=== PATIENT | male | born 1985 | race Caucasian/White ===

== ENCOUNTER 2016-12-26 13:54 | Inpatient (IN) ==
[2016-12-26] MEDS ORDERED: CLINDAMYCIN 900 MG/NS 900 MG/50 ML IVPB IV ONE (15:49)
[2016-12-26] MEDS ORDERED: VANCOMYCIN 1 GM/NS 1 GM/250 ML IVPB IV ONE ×2 (15:49→22:00)
[2016-12-26 16:53] LABS: MANUAL DIFF NEEDED? NO
[2016-12-26 16:57] LABS: BASO% 0.1 % (0.0-0.8); EOS# 0.03 X1000 (0.0-0.7); EOS% 0.2 % (0.0-10.0); HEMATOCRIT 36.8 % (42.0-52.0); IMM GRAN# 0.07 X1000 (0.0-0.04); IMM GRAN% 0.5 % (0.0-0.5); LYMPH# 0.68 X1000 (1.2-3.4); MCH 30.1 PG (27-31); MCHC 35.3 g/dL (33-37); MCV 85.2 FL (81-99); MONO% 4.5 % (1.7-9.3); NEUT% 89.7 % (42.2-75.2); PLT 293 X1000 (130-400); RBC 4.32 XMIL (4.7-6.1)
[2016-12-26 17:12] LABS: AGAP 20; ALBUMIN 3.4 g/dL (3.5-5.0); ALKALINE PHOSPHATASE 132 U/L (32-122); BUN 12 mg/dL (8-22); CALCIUM 8.3 mg/dL (8.8-10.2); CHLORIDE 86 mmol/L (98-107); COSMO 291; GOT 16 U/L (10-34); GPT 18 U/L (10-44); POTASSIUM 4.1 mmol/L (3.5-5.1); SODIUM 128 mmol/L (136-145); TCO2 22 mmol/L (25-35); TOTAL PROTEIN 6.2 g/dL (6.3-8.3)
[2016-12-26] MEDS ORDERED: NS 1,000 ML IV ONE (17:15)
[2016-12-26] MEDS ORDERED: HUMULIN R IV ONE (17:15)
[2016-12-26] MEDS ORDERED: TYLENOL PO PRN (17:22)
[2016-12-26] MEDS ORDERED: ZOFRAN IV PRN (17:22)
[2016-12-26] MEDS ORDERED: MORPHINE IV PRN (17:22)
[2016-12-26] MEDS ORDERED: HUMULIN R (PARKWAY) ONE (17:31)
--- NOTE | 2016-12-26 17:50 | PROVIDER DOCUMENTATION ---
This chart was entered by Promise Barillas Scribe, acting as scribe for Fabio Alas CRNP. HPI-Rash/Wound/ReCheck - General Chief Complaint: Abscess Stated Complaint: ABSCESS /LEG Time Seen by Provider: 12/26/16 15:28 Source: patient Allergies/Adverse Reactions: Allergies Allergy/AdvReac Type Severity Reaction Status Date / Time Penicillins Allergy RASH Verified 12/26/16 14:07 Home Medications: Home Medication List Medication Instructions Recorded Confirmed Last Taken Type Aspirin [Aspir-Low] 81 mg PO DAILY 12/26/16 12/26/16 12/26/16 10:00 History 81 MG Canagliflozin [Invokana] 300 mg PO DAILY 12/26/16 12/26/16 12/26/16 10:00 History 300 MG Fenofibrate 150 mg PO DAILY 12/26/16 12/26/16 12/25/16 21:00 History 150 MG Glimepiride [Amaryl] 4 mg PO DAILY 12/26/16 12/26/16 12/26/16 10:00 History 4 MG Insulin Glargine,Hum.rec.anlog 20 unit SQ BID 12/26/16 12/26/16 12/26/16 10:00 History [Lantus Solostar] 20 UNIT LISINOpril [Prinivil] 10 mg PO DAILY 12/26/16 12/26/16 12/26/16 10:00 History 10 MG LOVAstatin [Mevacor] 12/26/16 12/25/16 21:00 History Metformin [Glucophage] 500 mg PO BID CC 12/26/16 12/26/16 12/26/16 10:00 History 500 MG - History of Present Illness-Dermatology Nature of Presenting Problem: 31 yo M presents to the ER with complaint of what started as an abscess x2 weeks ago to R inner thigh. Complains of some fever/chills. States he started to feel an abscess and it has gotten worse. Now is it open and draining, tunneling noted, and has an odor. Has an area of cellulitis to L upper thigh and R groin area. Location: reports: lower extremity Onset/Duration: reports: other (2 wees) Context/Associated Symptoms: reports: abscess Review of Systems - Adult - REVIEW OF SYSTEMS - ADULT Constitutional: reports: chills, fever Eyes: reports: no symptoms reported Ears, Nose, Mouth & Throat: reports: no symptoms reported Cardiovascular: denies: chest pain, palpitations Respiratory: reports: cough. denies: shortness of breath Gastrointestinal: denies: diarrhea, nausea, vomiting Genitourinary: reports: no symptoms reported Musculoskeletal: reports: no symptoms reported Integumentary: reports: see HPI, skin sores/ulcer. denies: itching Neurological: reports: no symptoms reported Psychiatric: reports: no symptoms reported Endocrine: reports: no symptoms reported Hematologic/Lymphatic: reports: no symptoms reported Allergic/Immunologic: reports: no symptoms reported All Other Systems: Reviewed and Negative Past History - Adult - PAST MEDICAL HISTORY-ADULT Review of Records: reports: Nursing Assessment Review, Medications Reviewed Cardiovascular: reports: HTN, hyperlipidemia Endocrine/Immune: reports: Diabetes - PRIOR SURGERIES/PROCEDURES Surgical/Procedure History: reports: orthopedic (extremity) (club foot), other ( pilondiaal cyst) - IMMUNIZATION STATUS Childhood Immunizations: See Nurse Assessment Flu Vaccine: See Nurse Assessment Physical Exam-General - PHYSICAL EXAM-ADULT Initial Vital Signs Reviewed: Yes - CONSTITUTIONAL General Appearance: obese - EYES Eyes: PERRL/EOMI, pink conjunctivae - HEAD, EARS, NOSE, MOUTH & THROAT HENMT: normocephalic/atraumatic, normal ENT inspection - NECK Neck: supple, normal inspection - RESPIRATORY Respiratory: no respiratory distress, no accessory muscle use - CARDIOVASCULAR Cardiovascular: normal peripheral pulses, regular rate, rhythm - GASTROINTESTINAL (ABDOMEN) Abdominal Exam: normal bowel sounds, non tender, soft - MUSCULOSKELETAL Back Exam: no CVA tenderness, no vertebral tenderness Extremity: normal gait, normal inspection - SKIN Integumentary: erythema (L groin, L upper/inner thigh), tenderness (R upper/ inner thigh), warm (R upper/inner thigh), other (dime size open, draining, ulcerative crater with significant induration and erythema to R back/inner thigh ) - NEUROLOGIC Neurologic: grossly normal, no motor/sensory deficits - PSYCHIATRIC Psych/Mental Status: normal mood/affect, normal thought content, normal thought process, oriented x 3 Progress - PLAN OF CARE/RESULTS Progress/Plan/Lab Results: Vital Signs - 8 hr 12/26/16 14:04 Temperature 96.9 F L Pulse Rate 128 H Respiratory Rate 18 Blood Pressure 142/86 O2 Sat by Pulse Oximetry 98 Laboratory Results - last 24 hr 06/14/17 06/14/17 06/14/17 15:30 15:30 15:39 WBC 13.47 H RBC 4.32 L Hgb 13.0 L Hct 36.8 L MCV 85.2 MCH 30.1 MCHC 35.3 RDW Std Deviation 11.7 Plt Count 293 MPV 10.0 Immature Gran % (Auto) 0.5 Neut % (Auto) 89.7 H Lymph % (Auto) 5.0 L Cole % (Auto) 4.5 Eos % (Auto) 0.2 Baso % (Auto) 0.1 Immature Gran # (Auto) 0.07 H Neut # (Auto) 12.07 H Lymph # (Auto) 0.68 L Cole # (Auto) 0.60 H Eos # (Auto) 0.03 Baso # (Auto) 0.02 Sodium 128 L Potassium 4.1 Chloride 86 L Carbon Dioxide 22 L Anion Gap 20 BUN 12 Creatinine 1.0 Estimated GFR/1.73 m2 > 60 BUN/Creatinine Ratio 12 Glucose 707 H* Calculated Osmolality 291 Calcium 8.3 L Total Bilirubin 0.50 AST 16 ALT 18 Alkaline Phosphatase 132 H Total Protein 6.2 L Albumin 3.4 L Globulin 3.0 Albumin/Globulin Ratio 1.0 Plasma Lactate 4.5 H Orders Category Date Time Status Admit - [facility] Routine AdmDCTranf 12/26/16 17:22 Ordered Activity - Bed Rest with BRP ORDERED Care 12/26/16 17:22 Active Resuscitation Status Routine Care 12/26/16 17:22 Ordered Vital Signs Order ROUTINE Care 12/26/16 17:22 Active Diabetic Diet Diet 12/26/16 17:24 Active BLOOD CULTURE [BLDCUL] Stat Lab 12/26/16 15:30 Ordered C DIFF TOXIN PL Stat Lab 12/26/16 16:40 Ordered CBC WITH ELECTRONIC DIFF [HEME] Stat Lab 12/26/16 15:30 Completed COMPREHENSIVE METABOLIC PANEL [CHEM] Stat Lab 12/26/16 15:30 Completed LACTATE, PLASMA [CHEM] Stat Lab 12/26/16 15:39 Completed ROUTINE CULTURE [RM] Routine Lab 12/26/16 15:35 Ordered STOOL CULTURE [RM] Stat Lab 12/26/16 16:40 Uncollected WBC STOOL [STOOL] Stat Lab 12/26/16 16:40 Uncollected 0.9% Sodium Chloride Inj [Ns] 1,000 ml Med 12/26/16 17:15 Active IV 999 mls/hr Acetaminophen [Tylenol] Med 12/26/16 17:22 Active 650 mg PO Q6H PRN PRN Clindamycin 900 mg/Ns Med 12/26/16 15:49 Discontinued 900 mg in 50 ml IV NOW Insulin Human Regular ([place] [Humulin R ([place])] Med 12/26/16 17:31 Discontinued 1 units .ROUTE .STK-MED ONE Insulin Human Regular [Humulin R] Med 12/26/16 17:15 Discontinued 15 unit IV NOW ONE Morphine Med 12/26/16 17:22 Active 2 mg IV Q2H PRN PRN Ondansetron [Zofran] Med 12/26/16 17:22 Active 4 mg IV Q4H PRN PRN Vancomycin 1 gm/Ns Med 12/26/16 15:49 Discontinued 1 gm in 250 ml IV NOW Transfer/Admit Order [TRANSFER] Routine Transfer 12/26/16 17:25 Ordered Result Diagrams: 12/26/16 15:30 12/26/16 15:30 - CONSULTS/PCP/HOSPITALIST Notification #1 *Consult/PCP/Hospitalist*: [place] Time Discussed: 17:20 Consult Disposition: Will see in ED, Admit Departure - Departure Date of Disposition Decision: 12/26/16 Time of Disposition Decision: 17:47 DIAGNOSIS: Cellulitis Qualifiers: Site of cellulitis: extremity Site of cellulitis of extremity: lower extremity Laterality: right Qualified Code(s): L03.115 - Cellulitis of right lower limb Disposition: HOME 01 Certified Medical Emergency: Emergent Condition: Stable Referrals and Follow-Ups: Brent Mann MD [Primary Care Provider] - - Critical Care Note This patient required my direct & personal management of CC.: No Attestation - Physician/ TOYIN Attestation Patient care was provided by Advanced Practice Provider:: Yes Advanced Practice Provider:: Fabio Alas Advanced Practice Provider documentation review:: The Mid-level provider documentation, treatment plan and medical decision making was reviewed by the physician who agrees with all treatment and medical decision making by the MLP. The physician spent face to face time with patient:: Yes Advanced Practice Provider documentation review:: The physician spent face to face time with this patient and agrees with all MLP documentation, treatment, and medical decision making by the MLP. See provider notes for further information. This chart was documented by the indicated scribe, (Promise Barillas Scribe) and accurately reflects the services I performed and decisions made by , Fabio Alas CRNP, as attested by the provider's signature.
[2016-12-26] MEDS ORDERED: TYLENOL PO ONE (19:10)
[2016-12-26] MEDS ORDERED: ZOFRAN IV ONE (19:11)
[2016-12-26] MEDS ORDERED: VANCOMYCIN IV PER PHARMACY MISC SCH (19:45)
[2016-12-26] MEDS: LASIX IV SCH (22:00)
[2016-12-26] MEDS: ROCEPHIN 1 GM/NS 1 GM/50 ML IVPB IV SCH (22:01)
[2016-12-26] MEDS: HUMALOG DOSE (PARKWAY) SUBQ SCH (22:07)
[2016-12-26] MEDS: LANTUS INSULIN (PARKWAY) SUBQ SCH (22:07)
[2016-12-27 05:50] LABS: HEMOGLOBIN 11.9 g/dL (14.0-18.0); MCH 29.5 PG (27-31); MCV 84.4 FL (81-99); MPV 9.6 FL (7.4-10.4); RBC 4.03 XMIL (4.7-6.1)
[2016-12-27 06:00] LABS: HEMOGLOBIN A1C 12.3 % (4.8-6.0)
[2016-12-27] MEDS: HUMALOG DOSE (PARKWAY) SUBQ SCH ×4 (06:21→21:10)
[2016-12-27 06:22] LABS: AGAP 15; ALBUMIN 2.5 g/dL (3.5-5.0); ALKALINE PHOSPHATASE 131 U/L (32-122); BUN 16 mg/dL (8-22); CALCIUM 8.4 mg/dL (8.8-10.2); CHLORIDE 94 mmol/L (98-107); COSMO 282; GOT 18 U/L (10-34); GPT 16 U/L (10-44); MAGNESIUM 1.9 mg/dL (1.5-2.7); SODIUM 132 mmol/L (136-145); TCO2 23 mmol/L (25-35); TOTAL PROTEIN 6.5 g/dL (6.3-8.3)
[2016-12-27] MEDS: TYLENOL PO PRN ×2 (08:27→22:56)
[2016-12-27] MEDS: LANTUS INSULIN (PARKWAY) SUBQ SCH ×3 (08:28→21:09)
[2016-12-27] MEDS: GLUCOPHAGE PO SCH ×2 (08:32→16:27)
[2016-12-27] MEDS: TRICOR PO SCH (08:32)
[2016-12-27] MEDS: AMARYL PO SCH (08:33)
[2016-12-27] MEDS: INVOKANA PO SCH (08:33)
[2016-12-27] MEDS: LASIX IV SCH ×2 (08:33→21:05)
[2016-12-27] MEDS: PRINIVIL PO SCH (08:33)
[2016-12-27] MEDS: VANCOMYCIN 2,000 MG in NS 500 ML IV SCH ×2 (11:23→22:11)
[2016-12-27 12:11] LABS: BILIRUBIN URINE NEGATIVE (NEGATIVE); BLOOD URINE TRACE (NEGATIVE); CLARITY CLEAR (CLEAR); COLOR YELLOW; LEUKOCYTES URINE TRACE (NEGATIVE); NITRITE URINE NEGATIVE (NEGATIVE); PROTEIN URINE 1+(30 mg/dL) mg/dL (NEGATIVE); UROBILINOGEN URINE NORMAL
[2016-12-27 12:26] LABS: URINE CULTURE PL NEEDED? YES; URINE EPITHELIAL CELLS <10 /HPF (<10); URINE RBC <10 /HPF (<10); URINE SOURCE CLEAN CATCH; URINE WBC <10 /HPF (<10)
[2016-12-27] MEDS: LOMOTIL PO PRN (13:34)
[2016-12-27] MEDS: ZOFRAN IV PRN ×2 (16:28→21:03)
--- NOTE | 2016-12-27 16:39 | PROGRESS NOTE ---
DATE: 12/27/2016 SUBJECTIVE: Patient states he may feel just a little better today. He has had no further fevers or chills. He has required no pain medications. OBJECTIVE: Vital Signs: Blood pressure is 114/49, with a heart rate of 112. Respirations are 18, temperature is 100 with room air saturations 98-100%. All. Cardiovascular: Regular rate and rhythm S1, S2 appreciated. Pulmonary: Breath sounds are clear with no increased work of breathing noted. Gastrointestinal: Abdomen is soft, nontender, nondistended with bowel sounds in all 4 quadrants. Neurologic: He is alert and oriented x3 with cranial nerves 2-12 grossly intact. Musculoskeletal: Good range of motion of joints. Extremities: No clubbing, cyanosis, or edema noted to upper extremities or left lower extremity. Right thigh is edematous with erythema. He does have about a dime size open wound to his mid thigh with redness extending to mid thigh up into his groin area and around to his posterior thigh. This does not extend into his scrotal area. ASSESSMENT AND PLAN: 1. Cellulitis. 2. Hyponatremia. 3. Hypertension. 4. Diabetes with hyperglycemia. 5. Leukocytosis. We will continue with his current regimen. White count is decreased a little. Blood sugars continue ranging in the 350 to 400 range. Wound culture is still pending. Dictated by LAST Abraham for Panfilo Romano MD cc: LAST Abraham MD
--- NOTE | 2016-12-27 17:02 | HISTORY AND PHYSICAL ---
CHIEF COMPLAINT: "I have an open wound on my left leg." HISTORY OF PRESENT ILLNESS: This is a 31-year-old male who presented to the emergency room complaining of a draining wound to his right [id number] area with a foul odor. He states it has been present for 2 weeks. He stated that it started as what looked like a little pimple or ingrown hair and within 24 hours after this pimple was noticed, redness began to spread down his thigh and into his groin with drainage and foul odor. He has had some fever and chills over these 2 weeks. Prior to coming to the emergency room, he was starting to get an abscess as he could feel a little hardened area and the redness had spread. Therefore, he presented for further evaluation. PAST MEDICAL HISTORY: Hypertension, diabetes mellitus, hypercholesterolemia. PAST SURGICAL HISTORY: Myringotomy x3 as a child. Clubfoot surgery as a child. Surgical excision of ingrown hair. 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 He denies alcohol, tobacco or illicit drug use. He lives alone at home, but he has family that is close by. ALLERGIES: Soy which causes nausea and vomiting. Penicillin with unknown. HOME MEDICATIONS: Aspirin 81 mg daily. Prinivil 10 mg daily. Lantus insulin 20 units b.i.d. Fenofibrate 150 daily. Metformin 500 b.i.d. Amaryl 4 daily. Invokana 300 daily. Mevacor daily. REVIEW OF SYSTEMS: A 14 point review of systems is discussed with patient with pertinent positives stated in the HPI. He denies chest pain, palpitations, syncope, dizziness, shortness of breath, cough, PND, orthopnea, nausea, vomiting, diarrhea, constipation, black or bloody vomitus, black or bloody stools, hematuria, dysuria, frequency, urgency. PHYSICAL EXAMINATION: GENERAL: This is a 31-year-old male who is sitting in the bed in no distress. VITAL SIGNS: Blood pressure 135/80 with a heart rate of 96, respirations are 18 , temperature is 98.7 degrees oral with room air saturations of 99-100%. HEENT: Head is normocephalic, atraumatic. Pupils equal, round, react to light. EOMs are intact. Sclerae anicteric. Mucous membranes are moist. NECK: Supple. Trachea midline. CARDIOVASCULAR: Regular rate and rhythm. S1, S2 appreciated. PULMONARY: Breath sounds are clear with no increased work of breathing noted. GASTROINTESTINAL: Soft, nontender, nondistended. Bowel sounds in all 4 quadrants. MUSCULOSKELETAL: Good range of motion of joints. EXTREMITIES: No clubbing, cyanosis, or edema. Calves are nontender. He does have erythema and tenderness to his right upper inner thigh extending to border of right groin. There is about a dime- sized area that is draining. This does extend toborder of his groin, although not to scrotal or testicular area. DIAGNOSTICS: WBC is 13.4, with hemoglobin 13, hematocrit 36 and platelets of 293,000. Sodium is 128, potassium 4.1, BUN 12, creatinine 1, with a glucose of 707. Wound culture and blood cultures are pending. ASSESSMENT: 1. Cellulitis to right thigh 2. Leukocytosis secondary to #1. 3. Hyponatremia. 4. Insulin-dependent diabetes mellitus with hyperglycemia. PLAN: He will be admitted to the hospital. We will identify his home medications and continue as appropriate. He was given vancomycin and clindamycin in the emergency room. We will continue vancomycin, adding Rocephin once cultures return if antibiotics may need to be changed as appropriate to culture results. We will have pharmacy dose his vancomycin. We will continue with IV hydration. Pattern blood glucose, with sliding scale insulin. He will be placed on a diabetic diet. We will consult Wound Therapy. On assessment, he does have redness to his thigh, extending down to medial thigh going around to the posterior side of his thigh, going into his groin area. This does not extend into his scrotal area. We will continue to monitor. Further treatments pending hospital course. Dictated by LAST Abraham for Panfilo Romano MD cc: LAST Abraham MD [facility]
[2016-12-27] MEDS: NS 1,000 ML IV SCH ×2 (18:12→21:07)
[2016-12-27] MEDS: ROCEPHIN 1 GM/NS 1 GM/50 ML IVPB IV SCH (21:04)
[2016-12-28 06:16] LABS: HEMOGLOBIN 12.4 g/dL (14.0-18.0); MCH 29.5 PG (27-31); MCHC 34.4 g/dL (33-37); MCV 85.7 FL (81-99); MPV 9.6 FL (7.4-10.4); RBC 4.2 XMIL (4.7-6.1)
[2016-12-28] MEDS: HUMALOG DOSE (PARKWAY) SUBQ SCH ×4 (06:40→20:56)
[2016-12-28 06:45] LABS: CALCIUM 8.3 mg/dL (8.8-10.2); POTASSIUM 3.5 mmol/L (3.5-5.1)
[2016-12-28] MEDS: GLUCOPHAGE PO SCH (07:47)
[2016-12-28] MEDS: AMARYL PO SCH (07:47)
[2016-12-28] MEDS: PRINIVIL PO SCH (08:22)
[2016-12-28] MEDS: TRICOR PO SCH (08:22)
[2016-12-28] MEDS: INVOKANA PO SCH (08:22)
[2016-12-28] MEDS: LANTUS INSULIN (PARKWAY) SUBQ SCH ×2 (08:23→21:04)
--- NOTE | 2016-12-28 09:26 | PROGRESS NOTE ---
DATE: 12/28/2016 SUBJECTIVE: Patient notes that he is not draining as much. Notes that the pain is a little bit better but does think the swelling has progressed some to his perineal area. OBJECTIVE: Vital Signs: Reviewed and stable. He is awake, alert, obese male, who currently is in no respiratory distress. Neck: Supple. CV: Regular rate. Chest clear, although distant breath sounds due to body habitus. Extremities: Moves all extremities. Skin: Still noted to have marked erythema of is right thigh extending into his perineal area with open wounds that are likely sinus tracts with open wounds. They no longer are draining. ASSESSMENT: 1. Diabetes with intentional home noncompliance. Patient admits that he does not take his insulin on any regular basis. Notes that he typically eats what he wants to. Does not check his blood sugars at home. As noted, on admission his A1c was markedly elevated. 2. Cellulitis right groin with abscess and drainage. Culture currently pending. 3. Leukocytosis. 4. Hyponatremia. 5. Morbid obesity. 6. Noncompliance. PLAN: We will continue patient on antibiotics as it certainly appears that he is improving. His wound is no longer draining. Culture and sensitivity have been set up. We will consult Surgery for possible intervention. cc: Panfilo Romano MD
[2016-12-28] MEDS: LOMOTIL PO PRN (12:12)
[2016-12-28] MEDS: NS 1,000 ML IV SCH (12:12)
[2016-12-28] MEDS ORDERED: NS 1,000 ML IV SCH (14:56)
[2016-12-28] MEDS: TYLENOL PO PRN (14:57)
--- NOTE | 2016-12-28 16:49 | Diag Imaging Result Doc PS360 ---
EXAM: ABDOMEN FLAT/UPRIGHT HISTORY: DIARRHEA, TECHNIQUE: Two view abdomen. COMPARISON: None. FINDINGS: Supine and erect views of the abdomen reveal moderate amount of small bowel gas without distention. Distal gas is present. No organomegaly or mass effect. IMPRESSION: Nonspecific two view abdomen. Electronically signed by Shyann Longo 12/28/2016 4:46 PM
[2016-12-28] MEDS ORDERED: QUELICIN ONE (17:54)
[2016-12-28] MEDS ORDERED: XYLOCAINE-MPF 2% ONE (17:54)
[2016-12-28] MEDS ORDERED: DIPRIVAN 1% ONE (17:54)
[2016-12-28] MEDS ORDERED: FENTANYL ONE ×2 (17:54→19:11)
[2016-12-28] MEDS ORDERED: DECADRON ONE (18:19)
[2016-12-28] MEDS ORDERED: ZOFRAN ONE ×2 (18:19→19:52)
--- NOTE | 2016-12-28 18:23 | HISTORY AND PHYSICAL ---
HISTORY OF PRESENT ILLNESS: Mr. Garnett is a 31-year-old, morbidly obese, white male diabetic who works at the [employer] in [place]. I have taken care of his father in the past. He presented to our emergency department on 12/26/2016 with a several day history of swelling and redness involving his right thigh. He has been admitted by our hospitalist and received IV antibiotics. He is also having problems with diarrhea, and he has had fever today and we were asked to evaluate him. PAST MEDICAL HISTORY: Diabetes, high blood pressure, hyperlipidemia. PAST SURGICAL HISTORY: He has had surgery for a club foot and pilonidal cyst. MEDICATIONS: Aspirin, Invokana, fenofibrate, Amaryl, insulin, Prinivil, and Mevacor. SOCIAL HISTORY: His family physician is Dr. Mann. He works at the [address] in [place]. His mother was present at the bedside. REVIEW OF SYSTEMS: A 14-point review of systems was performed and was essentially negative except for the history of present illness. FAMILY HISTORY: Noncontributory. PHYSICAL EXAMINATION: GENERAL: Mr. Garnett is awake, cooperative. He wears glasses. He is morbidly obese. HEAD AND NECK: He has no jaundice, no oral lesions. No cervical or supraclavicular lymphadenopathy. HEART: Has a regular rate. LUNGS: Clear. ABDOMEN: Soft, nontender. EXTREMITIES: He has swelling and redness and cellulitis involving his medial right thigh with drainage of dark brown purulence from a wound opening medial right thigh which is foul smelling. There is evidence of necrosis of the skin and fluctuance. It appears that he has good flow to his feet bilaterally, he has no neurologic deficit. DIAGNOSTIC DATA: His white blood cell count has increased from 13 to 14.5, hematocrit is 37%. His temperature is 101 degrees. IMPRESSION: Necrotizing infection involving the medial right thigh in a morbidly obese diabetic with drainage of purulence. He is on IV antibiotics. PLAN: Incision and drainage with debridement of necrotizing soft tissue infection, medial right thigh. I have discussed this with the OR and nurse banana ripening room supervisor, and will try to proceed with this operation at [place]. I have discussed the procedure in detail with the patient and his mother at the bedside. cc: Gabriela Orosco MD
[2016-12-28] MEDS ORDERED: NEOSTIGMINE ONE (18:25)
[2016-12-28] MEDS ORDERED: ROBINUL ONE (18:25)
[2016-12-28] MEDS ORDERED: NS 1,000 ML ONE (18:34)
[2016-12-28] MEDS ORDERED: ZEMURON ONE (18:37)
--- NOTE | 2016-12-28 19:43 | OPERATIVE NOTE ---
PROCEDURE DATE: 12/28/2016 PREOPERATIVE DIAGNOSIS: Extensive soft tissue infection, proximal medial right thigh. POSTOPERATIVE DIAGNOSIS: Necrotizing fasciitis medial right thigh. 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 SURGEON: Gabriela Orosco MD. ANESTHESIA: General. ESTIMATED BLOOD LOSS: 100 mL. DRAINS: None. INDICATIONS: Mr. Demarco Garnett is a 31-year-old, morbidly obese white male diabetic who has a 3-day history of increasing swelling and redness involving his medial right thigh. He was admitted through [facility] on 12/26/2016 and has been on antibiotics. We were asked to see him today with an increasing white blood cell count, increasing cellulitis and swelling of the thigh and dark foul smelling drainage from a break in the skin inferiorly proximal right thigh. FINDINGS: He had necrotizing fasciitis of the soft tissue medial right thigh which was extensive. It required extensive debridement. The wound was left open and a total 4 Kerlix were needed to pack the wound. DESCRIPTION OF PROCEDURE: The patient was brought to the operating room, placed supine, received general anesthesia, was intubated. His medial right thigh was prepped and draped within the sterile field. He was already on IV antibiotics. He had an area of palpable fluctuance medial proximal right thigh and he also had an opening in the skin that was draining foul-smelling dark purulence more posteriorly. I used a 10 blade scalpel to incise the skin in the area of fluctuance and we quickly saw the amount of necrotic tissue. I had to make an incision which encompassed the posterior aspect of his thigh and extended to the anterior aspect of his thigh. We also needed incisions going down the thigh so that we could thoroughly open up the area of necrotizing fasciitis and debride all the necrotic skin, subcutaneous tissue, muscle and the superficial fascia. Bleeding was controlled using the cautery. We did have to suture ligate a blood vessel and also tie a blood vessel using 2-0 Vicryl. We used 3 L of fluid to thoroughly irrigate the wound once we had extensively sharply debrided it using Bonnies and Cerda scissors. We removed a lot of necrotic soft tissue. We thoroughly irrigated the wound and then packed it with dilute Betadine soaked Kerlix, we used at least 4 Kerlix to fill this extensive wound followed by ABD pads and a dressing. We placed a Portillo catheter tube after surgery to control contamination of this wound. He will have to be brought back to surgery for a 2nd look of the wound and continued surveillance for ongoing infection or necrosis. Plans are for him to go the recovery room and then return to the floor where he will remain on IV antibiotics and wound care will be an issue. , [phone] cc: Gabriela Orosco MD
[2016-12-28] MEDS: ROCEPHIN 1 GM/NS 1 GM/50 ML IVPB IV SCH (21:03)
[2016-12-29] MEDS: NS 1,000 ML IV SCH ×3 (05:48→17:16)
[2016-12-29] MEDS: HUMALOG DOSE (PARKWAY) SUBQ SCH ×5 (06:02→20:02)
[2016-12-29] MEDS: LANTUS INSULIN (PARKWAY) SUBQ SCH ×3 (08:37→20:02)
[2016-12-29] MEDS: AMARYL PO SCH (08:37)
[2016-12-29] MEDS: PRINIVIL PO SCH (08:37)
[2016-12-29] MEDS: INVOKANA PO SCH (08:38)
[2016-12-29] MEDS: TRICOR PO SCH (08:38)
[2016-12-29] MEDS: VANCOMYCIN 2,000 MG in NS 500 ML IV SCH (11:20)
--- NOTE | 2016-12-29 11:31 | PROGRESS NOTE ---
DATE: 12/29/2016 SUBJECTIVE: Patient without any new complaints today. He states his right eye still hurts. He denies any increased redness or swelling. PHYSICAL: Temperature 99.3, pulse 95, respiratory 16, BP 137/79. Saturation 100% on room air. General: Patient is awake, alert, obese male, who is currently in no respiratory distress. He is pleasant to talk with. Neck supple. CV: Regular rate. Chest: Clear. Abdomen soft. Right thigh is currently bandaged. He has less swelling after I and D yesterday. ASSESSMENT: 1. Necrotizing infection involving the right medial thigh. 2. Morbid obesity. 3. Diabetes with poor intentional home control. PLAN: We will continue patient on IV antibiotics. He is currently growing gram-positive cocci. He is currently on Rocephin and vancomycin. He received surgical intervention yesterday by Dr. Orosco. We will continue to follow. Continue his blood sugars which have been much better controlled during the hospitalization. He currently is down to 107-145 which is better than his 700 on admission. cc: Panfilo Romano MD
[2016-12-29] MEDS: MORPHINE IV PRN ×2 (13:16→19:46)
--- NOTE | 2016-12-29 18:17 | PROGRESS NOTE ---
DATE: 12/29/2016 Mr. Demarco Garnett is now postop day 1 from extensive incision and debridement of necrotizing fasciitis involving his medial right thigh. His wound remains dressed. He has had less fever and clinically feels better. He says his appetite is also better. We will plan to take him back to surgery for a dressing change and irrigation tomorrow to be sure there is not any evidence of ongoing infection. cc: Gabriela Orosco MD
[2016-12-29] MEDS: ROCEPHIN 1 GM/NS 1 GM/50 ML IVPB IV SCH ×2 (19:55→20:02)
[2016-12-30] MEDS: MORPHINE IV PRN ×3 (03:04→21:16)
[2016-12-30] MEDS: NS 1,000 ML IV SCH ×3 (03:04→21:21)
[2016-12-30] MEDS: HUMALOG DOSE (PARKWAY) SUBQ SCH ×4 (06:00→21:17)
[2016-12-30] MEDS ORDERED: DIPRIVAN 1% ONE ×2 (06:39→07:16)
[2016-12-30] MEDS ORDERED: QUELICIN ONE (06:41)
[2016-12-30] MEDS ORDERED: XYLOCAINE-MPF 2% ONE (06:41)
[2016-12-30] MEDS ORDERED: ZOFRAN ONE (06:43)
[2016-12-30] MEDS ORDERED: DECADRON ONE (06:44)
[2016-12-30] MEDS ORDERED: REGLAN ONE (06:57)
[2016-12-30] MEDS ORDERED: PEPCID ONE (06:58)
[2016-12-30] MEDS ORDERED: FENTANYL ONE (07:23)
[2016-12-30] MEDS: DILAUDID ONE ×2 (08:15→08:23)
[2016-12-30] MEDS: INVOKANA PO SCH (10:07)
[2016-12-30] MEDS: AMARYL PO SCH (10:07)
[2016-12-30] MEDS: TRICOR PO SCH (10:07)
[2016-12-30] MEDS: LANTUS INSULIN (PARKWAY) SUBQ SCH ×2 (10:07→21:16)
[2016-12-30] MEDS: PRINIVIL PO SCH (10:07)
[2016-12-30 10:42] LABS: BASO% 0.5 % (0.0-0.8); EOS# 0.02 X1000 (0.0-0.7); EOS% 0.2 % (0.0-10.0); HEMATOCRIT 35.1 % (42.0-52.0); HEMOGLOBIN 11.7 g/dL (14.0-18.0); IMM GRAN# 0.59 X1000 (0.0-0.04); IMM GRAN% 5.7 % (0.0-0.5); LYMPH# 0.85 X1000 (1.2-3.4); LYMPH% 8.2 % (20.5-51.1); MANUAL DIFF NEEDED? YES; MCH 29.3 PG (27-31); MCHC 33.3 g/dL (33-37); MCV 87.8 FL (81-99); MONO# 0.65 X1000 (0.11-0.59); MONO% 6.3 % (1.7-9.3); MPV 8.9 FL (7.4-10.4); NEUT% 79.1 % (42.2-75.2); PLT 391 X1000 (130-400)
[2016-12-30 10:56] LABS: AGAP 15; BUN 29 mg/dL (8-22); CALCIUM 8.7 mg/dL (8.8-10.2); CHLORIDE 103 mmol/L (98-107); COSMO 288; POTASSIUM 3.6 mmol/L (3.5-5.1); SODIUM 140 mmol/L (136-145); TCO2 22 mmol/L (25-35)
[2016-12-30 11:07] LABS: LYMPHS 10 % (21-51); MONO 5 % (1-9)
--- NOTE | 2016-12-30 11:43 | PROGRESS NOTE ---
DATE: 12/30/2016 SUBJECTIVE: The patient notes that he is feeling better. He is having less pain and swelling. He went to the OR this morning with Dr. Orosco and notes that his pain is well controlled currently. PHYSICAL EXAMINATION: Vital Signs: Temperature 97, pulse 90-102, respiratory rate 16, BP 110/60, saturating 99% on room air. General: Patient is awake, alert, currently in no respiratory distress. Pleasant to talk with. Obese, white male who is lying flat in the bed. HEENT: Normocephalic, atraumatic. JANETH. Neck: Supple. CV: Regular rate. Chest: Clear. Abdomen: Soft. Extremities: Moves all extremities. Skin: He is noted to have a new bandage over his right thigh and groin area that was debrided and replaced this morning by Dr. Orosco. LABS: His creatinine is currently 1.4. Microbiology demonstrates a Streptococcus sanguinis and Staphylococcus aureus. 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 2. Leukocytosis. 3. Acute renal failure. 4. Morbid obesity. 5. Diabetes with extremely poor control at home. His A1c was 12.3 on arrival. Currently, his recent blood sugars have been 150s to 180s. 6. Hyponatremia, appears resolved. PLAN: Patient had debridement this morning. We will continue him on vancomycin and Rocephin as his infection appears to be sensitive to both. We will continue to follow. Discussed with patient that he will be in the hospital a couple more days. Also discussed with patient, his mother, and father the perils of poor diabetes control and the fact that he has got to be more compliant with diet, exercise, and medications at home if he wants this to heal. cc: Panfilo Romano MD
[2016-12-30] MEDS: VANCOMYCIN 2,000 MG in NS 500 ML IV SCH (12:20)
--- NOTE | 2016-12-30 12:52 | OPERATIVE NOTE ---
PROCEDURE DATE: 12/30/2016 PREOPERATIVE DIAGNOSIS: Necrotizing soft tissue infection, medial right thigh. POSTOPERATIVE DIAGNOSIS: Necrotizing soft tissue infection, medial right thigh. PRINCIPAL PROCEDURE: 1. Dressing change under anesthesia. 2. Debridement of skin, subcutaneous tissue, muscle and tendon. SURGEON: Gabriela Orosco MD. ANESTHESIA: General. ESTIMATED BLOOD LOSS: 50 mL. DRAINS: None. INDICATIONS: Mr. Demarco Garnett is a 31-year-old, morbidly obese, white male with diabetes 2 days ago. He underwent urgent incision and debridement of a necrotizing fasciitis, soft tissue infection involving his medial right thigh. The wound was packed open. He has been hospitalized on IV antibiotics. It was felt we needed to re-explore the wound today to be sure there is not ongoing infection. FINDINGS: There was some necrotic tissue involving our wound, which was sharply debrided using forceps and Cerda scissors today. We thoroughly irrigated the wound again and repacked it with Kerlix. DESCRIPTION OF PROCEDURE: The patient was brought to the operating room, placed supine, received general anesthesia, was intubated. His right thigh was prepped and draped within the sterile field. He is already on IV antibiotics. We removed the Kerlix that were used for packing on this large wound and I used forceps with teeth and Cerda scissors to further debride skin, subcutaneous tissue, muscle and tendon that was necrotic from this wound. We then thoroughly irrigated the wound with 3 L of fluid using cysto tubing and then repacked the wound with dilute soaked Betadine Kerlix, followed by dry dressing and a wrap. He tolerated the procedure well with plans for him to go the recovery room and then return to the floor. cc: Gabriela Orosco MD
[2016-12-30] MEDS: ZOFRAN IV PRN (21:16)
[2016-12-30] MEDS: ROCEPHIN 1 GM/NS 1 GM/50 ML IVPB IV SCH (21:21)
[2016-12-31] MEDS: NS 1,000 ML IV SCH ×3 (00:29→19:30)
[2016-12-31] MEDS: MORPHINE IV PRN ×5 (05:47→22:21)
[2016-12-31] MEDS: HUMALOG DOSE (PARKWAY) SUBQ SCH ×4 (06:09→22:23)
[2016-12-31 06:37] LABS: BASO% 0.4 % (0.0-0.8); EOS# 0.04 X1000 (0.0-0.7); EOS% 0.4 % (0.0-10.0); HEMOGLOBIN 11.7 g/dL (14.0-18.0); IMM GRAN# 0.81 X1000 (0.0-0.04); IMM GRAN% 7.5 % (0.0-0.5); LYMPH% 17.5 % (20.5-51.1); MANUAL DIFF NEEDED? YES; MCH 28.8 PG (27-31); MCHC 32.5 g/dL (33-37); MCV 88.7 FL (81-99); MONO# 0.99 X1000 (0.11-0.59); MONO% 9.1 % (1.7-9.3); NEUT% 65.1 % (42.2-75.2); PLT 415 X1000 (130-400); RBC 4.06 XMIL (4.7-6.1)
[2016-12-31 06:43] LABS: AGAP 14; BUN 25 mg/dL (8-22); CALCIUM 8.5 mg/dL (8.8-10.2); CHLORIDE 103 mmol/L (98-107); COSMO 286; POTASSIUM 3.3 mmol/L (3.5-5.1); SODIUM 141 mmol/L (136-145); TCO2 24 mmol/L (25-35)
[2016-12-31 07:02] LABS: BANDS 4 % (0-1); LYMPHS 8 % (21-51); MONO 6 % (1-9)
[2016-12-31] MEDS: INVOKANA PO SCH (08:09)
[2016-12-31] MEDS: PRINIVIL PO SCH (08:10)
[2016-12-31] MEDS: AMARYL PO SCH (08:10)
[2016-12-31] MEDS: LANTUS INSULIN (PARKWAY) SUBQ SCH ×2 (08:10→22:23)
[2016-12-31] MEDS: TRICOR PO SCH (08:10)
--- NOTE | 2016-12-31 08:34 | PROGRESS NOTE ---
DATE: 12/31/2016 SUBJECTIVE: Patient notes that his pain is fairly well controlled with his current pain medication. Denies any nausea or vomiting. Denies any chest pain, palpitations. Denies any GI or issues. PHYSICAL: Vital Signs: Temperature 98, pulse 91, respiratory rate 18, BP 142/84, saturation 99% on room air. General: Patient is awake, alert, oriented. He is currently lying flat in the bed. He is in no distress. Neck: Supple. CV: Regular rate. Chest: Relatively clear. Abdomen: Soft. Extremities: Moves all extremities. Neurologic: No changes. LABS: Stable WBCs 10, hemoglobin and hematocrit 11 and 30, potassium 3.3. BUN 25, glucose much better control at 96-140, calcium 8.5. ASSESSMENT: 1. Diabetes with very poor home control with an A1c of 12.3. His blood sugars have been very well controlled the hospital from 96-143. 2. Maximino's gangrene. 3. Maximino's necrotizing soft tissue infection right medial thigh has been debrided by Dr. Orosco. 4. Morbid obesity. 5. Leukocytosis resolved. 6. Hyponatremia resolved. 7. Hypokalemia stable. 8. Strep sanguinous staphylococcus aureus and E. coli in his wound. Escherichia coli is bruce sensitive. His strep is highly sensitive to penicillin G, Levaquin and Rocephin, and the staphylococcus is highly sensitive to vancomycin as well as clindamycin. We will continue his current antibiotics and we will consider discharge on Levaquin and clindamycin when he is ready. cc: Panfilo Romano MD
[2016-12-31] MEDS: VANCOMYCIN 2,000 MG in NS 500 ML IV SCH (10:48)
--- NOTE | 2016-12-31 18:07 | PROGRESS NOTE ---
DATE: 12/31/2016 SUBJECTIVE: Mr. Garnett had his dressings changed by our wound clinic nurses today. Wash was used in addition to Kerlix as wraps. OBJECTIVE: His heart rate is 91 to 101. Blood pressure 151/86. O2 saturation 98%. He is afebrile. MEDICATIONS: He is on IV vancomycin and Rocephin. LABORATORY DATA: His white blood cell count is 10.8, hematocrit 36%. Electrolytes are within normal limits. BUN and creatinine 25 and 1.1. His glucose is better controlled. It has been 117 to 183. Microbiology suggested E. coli and also strep and staph. PLAN: Will continue daily dressing changes. He is still on IV antibiotics. He will be hospitalized until we are sure the soft tissue infection is under control, medial thigh, with some granulation tissue present. Then we can look at home health and maybe wound VAC therapy. cc: Gabriela Orosco MD
[2016-12-31] MEDS: ZOFRAN IV PRN (22:22)
[2016-12-31] MEDS: ROCEPHIN 1 GM/NS 1 GM/50 ML IVPB IV SCH (22:22)
[2017-01-01] MEDS: MORPHINE IV PRN ×5 (03:19→20:50)
[2017-01-01] MEDS: NS 1,000 ML IV SCH ×2 (04:21→15:52)
[2017-01-01] MEDS: HUMALOG DOSE (PARKWAY) SUBQ SCH ×4 (06:33→20:57)
[2017-01-01] MEDS: TRICOR PO SCH (08:11)
[2017-01-01] MEDS: PRINIVIL PO SCH (08:11)
[2017-01-01] MEDS: AMARYL PO SCH (08:11)
[2017-01-01] MEDS: INVOKANA PO SCH (08:12)
[2017-01-01] MEDS: LANTUS INSULIN (PARKWAY) SUBQ SCH ×2 (09:15→20:57)
--- NOTE | 2017-01-01 09:45 | PROGRESS NOTE ---
DATE: 01/01/2017 SUBJECTIVE: The patient denies any current complaints. He states that he is feeling better. He states the pain in his leg is also better. He denies any current chest pain or palpitations. Does note that his blood sugar was low last night. PHYSICAL: Temperature 99 to 100.3. Pulse 103, respiratory 20, BP 146/85, saturation 99% on room air. General: Patient is awake, alert, obese male who is currently in no respiratory distress. Speech is regular. Memory is intact. Neck supple. CV: Regular rhythm and rate. Chest: Relatively clear. Abdomen soft. Extremities: Moves all extremities. Neurologic: No focal changes. Skin: Warm and dry. No rashes. Skin: He has no further rashes other than what is still in his right groin and inguinal region. This is being cleaned and dressed by surgery. LABORATORY DATA: No current labs this morning. ASSESSMENT: 1. Cellulitis, right inguinal region. 2. Diabetes. 3. Hypertension. 4. Morbid obesity. 5. Hyponatremia. 6. Leukocytosis, resolved. PLAN: We will continue patient on antibiotics. He currently has an Escherichia coli growing in his wound culture that is pansensitive. He also has a streptococcus sanguis and Staphylococcus aureus for which he is on Rocephin and vancomycin. We will continue to follow. Further orders as needed. cc: Panfilo Romano MD
[2017-01-01] MEDS: VANCOMYCIN 2,000 MG in NS 500 ML IV SCH (12:28)
--- NOTE | 2017-01-01 19:42 | PROGRESS NOTE ---
DATE: 01/01/2017 SUBJECTIVE: Mr. Garnett has had his wound changed again by our Wound Center nurses. He has had a low-grade fever, but otherwise clinically feels better. He is tolerating a diet. He still has a Portillo catheter tube in place just to keep the wound not contaminated. We will continue daily dressing changes and IV antibiotics. As soon as we are sure that the wound is clean and we can treat it as an outpatient, we will look for home health care. cc: Gabriela Orosco MD
[2017-01-01] MEDS: ROCEPHIN 1 GM/NS 1 GM/50 ML IVPB IV SCH (20:51)
[2017-01-01] MEDS: TYLENOL PO PRN (22:47)
[2017-01-02] MEDS: MORPHINE IV PRN ×6 (05:44→21:56)
[2017-01-02] MEDS: VANCOMYCIN 2,000 MG in NS 500 ML IV SCH ×2 (05:44→23:03)
[2017-01-02] MEDS: PRINIVIL PO SCH (08:25)
[2017-01-02] MEDS: AMARYL PO SCH (08:25)
[2017-01-02] MEDS: TRICOR PO SCH (08:25)
[2017-01-02] MEDS: LANTUS INSULIN (PARKWAY) SUBQ SCH ×2 (08:31→21:46)
[2017-01-02] MEDS: HUMALOG DOSE (PARKWAY) SUBQ SCH ×4 (11:15→21:45)
[2017-01-02] MEDS: INVOKANA PO SCH (11:17)
[2017-01-02] MEDS: CLINDAMYCIN 600 MG/NS 600 MG/50 ML IVPB IV SCH ×2 (12:29→19:54)
[2017-01-02] MEDS ORDERED: KLOR-CON PO ONE (17:09)
--- NOTE | 2017-01-02 17:44 | PROGRESS NOTE ---
DATE: 01/02/2017 SUBJECTIVE: The patient has no focal complaints. OBJECTIVE: Vital Signs: Blood pressure 148/86, heart rate 98, respiratory rate 18, temperature 99 degrees, 99% on room air. T-max 102.6 degrees last night at 9:30. Cardiovascular: Regular rate and rhythm. Pulmonary: Bilateral breath sounds. Clear to auscultation. GI: Soft, nontender, nondistended. Bowel sounds are positive. Extremities: No clubbing or cyanosis. Lymphatics: No peripheral edema. Neurological: Nonfocal. LABORATORY DATA: Potassium 3.3. White count I think was normal, 10.8. PROBLEM LIST: 1. Extensive cellulitis along the right inguinal area with some extension possibly into the perineum status post debridement. Dr. Orosco is following. He is on broad-spectrum antibiotics with persistent fevers. I am going to add clindamycin in addition to his vancomycin and Rocephin which his cultures have grown out Escherichia coli sensitive to everything and Streptococcus sanguinis and Staphylococcus aureus which is MSSA, and he is on appropriate antibiotics. Because of his fevers, we will check a urinalysis and chest x-ray and make sure there is not other etiologies. His wound does appear to be healing but I would consider that probably may need further debridement that will be at the decision of Dr. Orosco. He will likely need a wound VAC and go home with that. 2. Hypokalemia. Supplement and follow. 3. Diabetes. Blood sugars are overall controlled. We will continue his regular medications. DISPOSITION: Pending his clinical course. Anticipate he will need wound VAC therapy possibly at home next 24 hours pending his other issues. Continue to follow very closely. cc: Miguel Russo MD
--- NOTE | 2017-01-02 18:46 | PROGRESS NOTE ---
DATE: 01/02/2017 Mr. Garnett continues to have some infection involving the soft tissue in the medial right thigh despite daily dressing changes and IV antibiotics. I will take him back to surgery tomorrow whether it be at [facility] or [facility] for further irrigation and debridement of his wound. I changed the wound myself today. I discussed his care with the patient and his family at the bedside. His T-max has been 99. His heart rate is 98. Blood pressure is 148/86. O2 saturation 99%. He is eating well. He is having regular bowel movements and his sugar is fairly well controlled. I have called the nurse smoke jumper supervisor to post his case tomorrow and we will keep him NPO after midnight. cc: Gabriela Orosco MD
[2017-01-02] MEDS: ROCEPHIN 1 GM/NS 1 GM/50 ML IVPB IV SCH (21:45)
[2017-01-02] MEDS: NS 1,000 ML IV SCH (23:34)
[2017-01-02 23:49] LABS: BILIRUBIN URINE NEGATIVE (NEGATIVE); BLOOD URINE 2+ (NEGATIVE); CLARITY SL. CLOUDY (CLEAR); COLOR YELLOW; LEUKOCYTES URINE 1+ (NEGATIVE); NITRITE URINE NEGATIVE (NEGATIVE); SP GRAVITY URINE 1.015; UROBILINOGEN URINE NORMAL
[2017-01-02 23:50] LABS: URINE CULTURE PL NEEDED? YES; URINE EPITHELIAL CELLS <10 /HPF (<10); URINE WBC <10 /HPF (<10)
[2017-01-02 23:51] LABS: URINE SOURCE CATH
[2017-01-03] MEDS ORDERED: PYRIDIUM PO ONE (00:44)
[2017-01-03] MEDS: MORPHINE IV PRN ×4 (02:07→20:31)
[2017-01-03] MEDS: CLINDAMYCIN 600 MG/NS 600 MG/50 ML IVPB IV SCH ×3 (03:54→23:45)
[2017-01-03] MEDS: HUMALOG DOSE (PARKWAY) SUBQ SCH ×3 (06:17→16:51)
[2017-01-03 06:38] LABS: HEMATOCRIT 32.4 % (42.0-52.0); HEMOGLOBIN 10.6 g/dL (14.0-18.0); MCHC 32.7 g/dL (33-37); MCV 88.8 FL (81-99); MPV 8.4 FL (7.4-10.4); RBC 3.65 XMIL (4.7-6.1)
[2017-01-03 07:05] LABS: AGAP 11; BUN 11 mg/dL (8-22); CHLORIDE 107 mmol/L (98-107); COSMO 282; POTASSIUM 3.5 mmol/L (3.5-5.1); SODIUM 141 mmol/L (136-145); TCO2 23 mmol/L (25-35)
--- NOTE | 2017-01-03 07:44 | Diag Imaging Result Doc PS360 ---
EXAM: CHEST-PORTABLE - 01/03/2017 HISTORY: dyspnea TECHNIQUE: Portable chest 6:11 AM COMPARISON: None. FINDINGS: Heart size is normal. The lungs appear clear. There is no vascular congestion, pleural effusion, or pneumothorax identified. There is mild artifact noted over the thoracic inlet region. IMPRESSION: No evidence of acute disease. Electronically signed by Donavon Clark 01/03/2017 7:42 AM
[2017-01-03] MEDS: PRINIVIL PO SCH (08:55)
[2017-01-03] MEDS: LANTUS INSULIN (PARKWAY) SUBQ SCH (08:57)
[2017-01-03] MEDS: INVOKANA PO SCH (08:58)
[2017-01-03] MEDS: AMARYL PO SCH (08:58)
[2017-01-03] MEDS: TRICOR PO SCH (08:59)
[2017-01-03] MEDS ORDERED: DIPRIVAN 1% ONE (09:31)
[2017-01-03] MEDS ORDERED: FENTANYL ONE (09:31)
[2017-01-03] MEDS ORDERED: REGLAN IV ONE (09:41)
[2017-01-03] MEDS ORDERED: PEPCID IV ONE (09:42)
[2017-01-03] MEDS ORDERED: SODIUM CHLORIDE 0.9% INJ ONE (09:42)
[2017-01-03] MEDS ORDERED: VERSED ONE (10:19)
--- NOTE | 2017-01-03 12:03 | OPERATIVE NOTE ---
PROCEDURE DATE: 01/03/2017 PREOPERATIVE DIAGNOSIS: Necrotizing fasciitis, medial right thigh. POSTOPERATIVE DIAGNOSIS: Necrotizing fasciitis, medial right thigh. PRINCIPAL PROCEDURE: Debridement of skin, subcutaneous tissue, muscle, and tendon with the irrigation of the wound and dressing change under anesthesia. SURGEON: Gabriela Orosco MD. ANESTHESIA: General. ESTIMATED BLOOD LOSS: 25 mL. DRAINS: None. INDICATIONS: Demarco Garnett is a 31-year-old white male, a morbidly obese diabetic who developed necrotizing fasciitis, medial right thigh. He has been hospitalized over the last week. I have taken him to surgery 2 other times, and we felt we needed to continue to fight the infection and clean the wound. It has been dressed daily at the bedside, but he needed a dressing change under anesthesia with further debridement of his wound. DESCRIPTION OF PROCEDURE: The patient was brought to the operating room, placed supine, received general anesthesia, and was intubated. His right thigh was prepped and draped in a sterile field. He does have a Portillo catheter tube in place. We removed the dressing and used forceps and scissors to debride further necrotic skin, subcutaneous tissue, fascia, and muscle within our wound. We then used an orthopedic educational manager and 3 liters of fluid to thoroughly irrigate the wound. I then used a Betadine-soaked sponge to scrub the wound and we used 3 more liters of fluid and the orthopedic pulse educational manager to further irrigate out the wound. All necrotic tissue was debrided using Cerda scissors and forceps. We repacked the wound with Betadine-soaked Kerlix, followed by dry dressing and an John wrap. Portillo catheter tube remains. Plans are for him to go back to his room on the floor. We will considered repeating this procedure tomorrow. cc: Gabriela Orosco MD
[2017-01-03] MEDS: DILAUDID ONE ×2 (12:07→12:11)
[2017-01-03] MEDS: NS 1,000 ML IV SCH (12:40)
[2017-01-03] MEDS ORDERED: DIFLUCAN PO ONE (13:30)
[2017-01-03] MEDS: VANCOMYCIN 2,000 MG in NS 500 ML IV SCH (18:25)
--- NOTE | 2017-01-03 20:40 | PROGRESS NOTE ---
DATE: 01/03/2017 SUBJECTIVE: Patient notes that he is having increased pain in his right lower extremity. He did have some fever, but he has not had that in the past 24 hours. PHYSICAL: Vital signs: Temperature 97.6, pulse 93, respiratory 20, blood pressure 151/88, saturation 98% on room air. General: Patient is awake, alert, obese male, who currently is in no respiratory distress. He is pleasant to talk with. Neck: Supple. CARDIOVASCULAR: Regular rate. Chest: Clear. Abdomen: Soft. Extremities: Moves all extremities. Neurologic: No changes. Skin: Warm, dry. No rashes. He is noted to have a bandage over his right thigh secondary to his current infection. This is being debrided in the OR bypass Surgery. He has planned debridement again today. ASSESSMENT: 1. Extensive cellulitis of the right inguinal area as noted above with planned debridement by Dr. Orosco this morning. He has had persistent fevers and clindamycin was added. He has had no further fever for the past few days. He continues on clindamycin, Rocephin and vancomycin. 2. Hypokalemia, stable. 3. Hyperglycemia, in fact his blood sugars are greatly improved. They were 700 on admit, currently in the 100 range. 4. Morbid obesity. 5. Adult failure to thrive secondary to inactivity. PLAN: We will continue debridement by Dr. Orosco. Continue antibiotics. We will discuss with Dr. Orosco the possibility of requiring a PICC line for continued IV antibiotics. Further orders as needed. cc: Panfilo Romano MD
[2017-01-04] MEDS: NS 1,000 ML IV SCH ×2 (00:14→17:00)
[2017-01-04] MEDS: LANTUS INSULIN (PARKWAY) SUBQ SCH ×3 (00:15→21:23)
[2017-01-04] MEDS: HUMALOG DOSE (PARKWAY) SUBQ SCH ×5 (00:15→21:22)
[2017-01-04] MEDS: ROCEPHIN 1 GM/NS 1 GM/50 ML IVPB IV SCH (00:33)
[2017-01-04] MEDS: MORPHINE IV PRN ×5 (01:40→21:20)
[2017-01-04] MEDS ORDERED: DIPRIVAN 1% ONE (07:43)
[2017-01-04] MEDS ORDERED: FENTANYL ONE ×2 (07:43→08:48)
[2017-01-04] MEDS ORDERED: XYLOCAINE-MPF 2% ONE (07:43)
[2017-01-04] MEDS ORDERED: VERSED ONE (07:43)
[2017-01-04] MEDS: ZOFRAN IV PRN (08:28)
[2017-01-04] MEDS ORDERED: NS 1,000 ML ONE (08:33)
[2017-01-04] MEDS: DILAUDID ONE ×2 (09:52→09:59)
--- NOTE | 2017-01-04 11:00 | PROGRESS NOTE ---
DATE: 12/26/2016 SUBJECTIVE: Patient is in no distress. He is n.p.o. this morning to have further surgical debridement. States overall his pain is better controlled. OBJECTIVE: Vital Signs: Temperature 96.9 degrees, pulse 89, respiratory rate 18, blood pressure 173/77. General: Patient is awake, alert. He is in no distress. An obese male who is lying in bed. HEENT: Normocephalic, atraumatic. Neck: Supple. Cardiovascular: Regular rate. Chest: Clear. Abdomen: Soft. Extremities: He moves all extremities. Right thigh is bandaged extensively by Surgery. ASSESSMENT: 1. Extensive cellulitis, right lower extremity, with streptococcus, methicillin-resistant staphylococcus, and Escherichia coli. Will continue IV antibiotics. Will discuss with Dr. Orosco about length of antibiotics. 2. Hypokalemia, stable. 3. Hypocalcemia, stable. 4. Diabetes. Much better control. cc: Panfilo Romano MD
[2017-01-04] MEDS: PRINIVIL PO SCH (11:01)
[2017-01-04] MEDS: AMARYL PO SCH (11:01)
[2017-01-04] MEDS: INVOKANA PO SCH (11:02)
--- NOTE | 2017-01-04 11:40 | OPERATIVE NOTE ---
PROCEDURE DATE: 01/04/2017 PREOPERATIVE DIAGNOSIS: Necrotizing fasciitis, medial right thigh. POSTOPERATIVE DIAGNOSIS: Necrotizing fasciitis, medial right thigh. PRINCIPAL PROCEDURE: Incision, debridement, and irrigation of medial right thigh wound. SURGEON: Gabriela Orosco MD ANESTHESIA: General using LMA. ESTIMATED BLOOD LOSS: 50 mL. DRAINS: None. INDICATIONS: Mr. Demarco Garnett is a 31-year-old morbidly obese white male diabetic who developed necrotizing fasciitis of the medial right thigh. This is the third or fourth time I have brought him to the operating room for continuing debridement and irrigation of this wound to fight infection. FINDINGS: He did have a pocket of ongoing infection going down the thigh. I had to open more skin and subcutaneous tissue to unroof this pocket and debride it thoroughly. Our debridement included skin, subcutaneous tissue, muscle and fascia. We used 6 liters of irrigation to irrigate the wound and then packed it open. DESCRIPTION OF PROCEDURE: The patient was brought to the operating room, placed supine, received general anesthesia and an LMA was used. We used candy-cane stirrups to spread his legs apart. The area of operation was prepped and draped within the sterile field. Initially, I used Cerda scissors and forceps with teeth to debride tissue. I then had to use the 10-blade scalpel to open up more skin going distally medial right thigh to open a pocket of ongoing infection. I used 2-0 Vicryl stitches to control some bleeding from the soft tissue. I used an orthopedic disc recordist and 6 liters of fluid to thoroughly irrigate the wound, and we tried to debride all necrotic tissue from the wound using these Cerda scissors. We then packed the wound open with saline-soaked gauze, dry dressing, and then a Kerlix. He has a Portillo catheter tube in place. The plans are for him to go the recovery room and then return to the floor. He tolerated the procedure well. cc: Gabriela Orosco MD
[2017-01-04] MEDS: CLINDAMYCIN 600 MG/NS 600 MG/50 ML IVPB IV SCH ×3 (11:46→23:16)
[2017-01-04] MEDS: VANCOMYCIN 2,000 MG in NS 500 ML IV SCH (13:31)
[2017-01-04] MEDS: TRICOR PO SCH (18:51)
[2017-01-05] MEDS: DILAUDID ONE (00:16)
[2017-01-05] MEDS: ROCEPHIN 1 GM/NS 1 GM/50 ML IVPB IV SCH ×2 (00:17→23:40)
[2017-01-05] MEDS: MORPHINE IV PRN ×6 (00:22→21:46)
[2017-01-05] MEDS: HUMALOG DOSE (PARKWAY) SUBQ SCH ×4 (06:36→21:44)
[2017-01-05] MEDS: VANCOMYCIN 2,000 MG in NS 500 ML IV SCH ×2 (06:36→23:40)
[2017-01-05] MEDS: INVOKANA PO SCH (08:14)
[2017-01-05] MEDS: AMARYL PO SCH (08:14)
[2017-01-05] MEDS: TRICOR PO SCH (08:14)
[2017-01-05] MEDS: CLINDAMYCIN 600 MG/NS 600 MG/50 ML IVPB IV SCH (08:14)
[2017-01-05] MEDS: PRINIVIL PO SCH (08:14)
[2017-01-05] MEDS: LANTUS INSULIN (PARKWAY) SUBQ SCH ×2 (08:16→21:45)
--- NOTE | 2017-01-05 11:25 | PROGRESS NOTE ---
DATE: 01/05/2017 SUBJECTIVE: Patient overall is improving. He is continuing to have wound debridement by Dr. Orosco. The pain is improving. Blood sugars are definitely improving. OBJECTIVE: Vital signs reviewed. Temperature 98 degrees, pulse 105, respiratory 18, BP 140/80, saturation 95% on room air. General: The patient is awake, alert, currently in no real respiratory distress. Speech is regular. Memory is intact. Neck Supple. CV: Regular rate. Chest clear. Abdomen soft, morbidly obese. Extremities: Moves all extremities. Skin/Extremities: Right lower extremity is still warm and dry. Bandage is clear. IMPRESSION: 1. Diabetes. Blood sugars have actually been low multiple times. We will continue to decrease his insulin. Will decrease him to 20 units twice a day of Lantus from his current 25. We will continue a diabetic diet. 2. Hypertension. Continue medication. 3. Cellulitis, right lower extremity. He currently has strep sanguinous Staphylococcus aureus which is methicillin sensitive and currently growing Escherichia coli. We will change his clindamycin to p.o. and begin changing each of his antibiotics to oral over the next few days and, hopefully, home in the next few days. cc: Panfilo Romano MD
--- NOTE | 2017-01-05 11:53 | PROGRESS NOTE ---
DATE: 01/04/2017 SUBJECTIVE: Feels better, having some pain in his leg. The Portillo catheter is bothering him mostly. OBJECTIVE: Vital Signs: No fevers. T-max 99.7 degrees, heart rate has been in the 90s to low 100s. Blood pressure 140/80, oxygen saturation 95% on room air. General: He is alert, no acute distress. His right thigh wound is overall clean. There is some areas of fibrinous tissue but mostly it is beefy red and bleeding. I do not see any purulence and no real significant surrounding erythema. LABORATORY DATA: White count on the was 10. Glucose yesterday evening was 122. ASSESSMENT/PLAN: A 31-year-old male with necrotizing fasciitis right thigh. It has been debrided multiple times. It looks okay today. I do not see any ongoing necrosis or purulence at this point. Continue monitor, broad-spectrum antibiotics and twice daily dressing changes wet-to-dry dressings. No plans for further surgical intervention at this time. I have asked the nurse take his Portillo out as this seems to be bothering him. He is moving around in the room pretty well. cc: Chinedu Gruber MD
[2017-01-05] MEDS: CLEOCIN PO SCH (17:17)
[2017-01-05] MEDS: TYLENOL PO PRN (23:42)
[2017-01-06] MEDS: HUMALOG DOSE (PARKWAY) SUBQ SCH ×4 (06:49→20:45)
[2017-01-06] MEDS: CLEOCIN PO SCH ×3 (08:39→16:34)
[2017-01-06] MEDS: PRINIVIL PO SCH (08:39)
[2017-01-06] MEDS: INVOKANA PO SCH (08:39)
[2017-01-06] MEDS: AMARYL PO SCH (08:39)
[2017-01-06] MEDS: LANTUS INSULIN (PARKWAY) SUBQ SCH ×3 (08:40→20:46)
[2017-01-06] MEDS: MORPHINE IV PRN ×5 (09:10→22:49)
[2017-01-06] MEDS: TRICOR PO SCH (09:11)
--- NOTE | 2017-01-06 11:11 | PROGRESS NOTE ---
DATE: 01/06/2017 SUBJECTIVE: The patient notes that he is feeling much better. He has been able ambulate the room to some degree. Denies any chest pain or palpitations. PHYSICAL EXAMINATION: Vital Signs: Temperature 98, pulse 96, respiratory rate 20, BP 107/67, saturation 98% on room air. General: Patient is awake, alert, currently in no respiratory distress. Obese, white male who is pleasant to talk with. HEENT: Normocephalic. Neck: Supple. CV: Regular rate. Chest: Clear. Abdomen: Soft. Extremities: Bandage on the right thigh is clean, dry, and intact. Good distal pulses. ASSESSMENT: 1. Necrotizing cellulitis. He currently does not need debridement. Hopefully, will not need further debridement. Changed him over to oral clindamycin yesterday. His staphylococcus is very sensitive to clindamycin. Therefore, we will stop his vancomycin today. We will continue Rocephin today. Certainly may consider changing over to Levaquin which would treat the streptococcus and E. coli in the morning. Hopefully home soon. 2. Hypertension. Blood pressures are better. 3. Diabetes. Blood sugars are much improved since being admitted to the hospital. He has been in the low 100s. We have continued to decrease his Lantus and will actually decrease it again to 18 units twice a day. cc: Panfilo Romano MD
[2017-01-07] MEDS: ROCEPHIN 1 GM/NS 1 GM/50 ML IVPB IV SCH (00:40)
[2017-01-07] MEDS: MORPHINE IV PRN ×5 (01:59→22:29)
[2017-01-07] MEDS: HUMALOG DOSE (PARKWAY) SUBQ SCH ×4 (06:43→22:30)
[2017-01-07] MEDS: CLEOCIN PO SCH ×3 (08:34→17:41)
[2017-01-07] MEDS: AMARYL PO SCH (08:34)
[2017-01-07] MEDS: PRINIVIL PO SCH (08:34)
[2017-01-07] MEDS: TRICOR PO SCH (08:34)
[2017-01-07] MEDS: LEVAQUIN PO SCH (08:35)
[2017-01-07] MEDS: INVOKANA PO SCH (08:35)
[2017-01-07] MEDS: LANTUS INSULIN (PARKWAY) SUBQ SCH ×2 (08:38→22:30)
--- NOTE | 2017-01-07 08:45 | PROGRESS NOTE ---
DATE: 01/07/2017 SUBJECTIVE: Patient notes that he is doing better. He did have some pain last night but overall the pain is better. States he has been attempting to get out of bed. Denies any chest pain, palpitations. OBJECTIVE: Vital signs: Temperature 97, pulse 96, respiratory 20, BP 146/78, saturation 98% on room air. General: Patient is awake, alert, oriented. He is currently in no respiratory distress. Speech is regular. Memory is intact. Neck: Supple. CV: Regular rate. Chest: Relatively clear. Abdomen: Soft. Extremities: Moves all extremities. Neurologic: No focal changes. Skin: His right lower extremity, bandage is clean, dry, and intact, and continues to be changed per surgery's orders. ASSESSMENT: 1. Necrotizing cellulitis, improving. 2. Hypokalemia, improving. 3. Hypoglycemia. Blood sugars are better this morning, in the low 100s. We did decrease his Lantus down to 18 units. 4. Hypertension. PLAN: Will continue patient on his current medications. We will stop Rocephin this morning and change to p.o. Levaquin and continue p.o. clindamycin and discuss with surgery options for discharge. cc: Panfilo Romano MD
--- NOTE | 2017-01-07 18:31 | PROGRESS NOTE ---
DATE: 01/07/2017 Mr. Garnett has wound change by our wound care nurses today. It is been cleaning up over the weekend and we need to work to get him home with home health as long as the wound can be taking care of. We will stop his IV medication. His Portillo catheter tube is out. His sugars under control and his appetite has been good. cc: Gabriela Orosco MD
[2017-01-08 06:10] LABS: HEMATOCRIT 29.2 % (42.0-52.0); HEMOGLOBIN 9.4 g/dL (14.0-18.0); MCH 28.7 PG (27-31); MCHC 32.2 g/dL (33-37); MCV 89.3 FL (81-99); RBC 3.27 XMIL (4.7-6.1)
[2017-01-08] MEDS: MORPHINE IV PRN ×2 (06:12→10:21)
[2017-01-08 06:27] LABS: AGAP 10; BUN 8 mg/dL (8-22); CALCIUM 8.3 mg/dL (8.8-10.2); CHLORIDE 104 mmol/L (98-107); COSMO 278; POTASSIUM 3.4 mmol/L (3.5-5.1); SODIUM 140 mmol/L (136-145); TCO2 26 mmol/L (25-35)
[2017-01-08] MEDS: AMARYL PO SCH (08:11)
[2017-01-08] MEDS: LEVAQUIN PO SCH (09:22)
[2017-01-08] MEDS: PRINIVIL PO SCH (09:22)
[2017-01-08] MEDS: TRICOR PO SCH (09:22)
[2017-01-08] MEDS: CLEOCIN PO SCH (09:22)
[2017-01-08] MEDS: HUMALOG DOSE (PARKWAY) SUBQ SCH (09:49)
[2017-01-08] MEDS: INVOKANA PO SCH (10:24)
[2017-01-08 13:14] VITALS: BP 137/88
--- NOTE | 2017-01-09 06:10 | DISCHARGE SUMMARY ---
ADMISSION DATE: 12/26/2016 DISCHARGE DATE: 01/08/2017 PRIMARY CARE PHYSICIAN: Dr. Mann. DIAGNOSES: Necrotizing Fasciitis Electrolyte imbalance, resolved Diabetes Melitis Hypertension MICROBIOLOGY: 1. On 12/26/2016, routine right leg culture revealed Staphylococcus aureus and Streptococcus sanguis. 2. On 12/28/2016, routine culture from right leg revealed E. coli. 3. On 01/02/2017, urine culture revealed yeast. DISCHARGE PHYSICAL EXAMINATION: Cardiovascular: Regular rate and rhythm. S1 and S2 are appreciated. Pulmonary: Breath sounds are clear, with no increased work of breathing noted. Gastrointestinal: Abdomen is soft, nontender, nondistended, with bowel sounds in all 4 quadrants. Extremities: No clubbing, cyanosis, or edema to upper extremities or left lower extremity. His right lower extremity does have a bandage that is clean and dry. He does have some lower extremity edema to this leg. Neurologic: He is alert and oriented x3.. Discharge Vital Signs: Blood pressure is 137/88, with a heart rate of 95. Respirations are 16, temperature is 99 degrees, with a room air saturation of 98-100%. DISCHARGE MEDICATIONS: Mevacor 20 mg at bedtime, aspirin 81 mg daily, Prinivil 10 daily, Lantus insulin 18 units subcutaneous b.i.d., fenofibrate 150 daily, Glucophage 500 mg b.i.d., Amaryl 4 mg daily, Invokana 300 mg daily, Levaquin 500 mg daily for 14 days, clindamycin 300 mg 3 times a day for 14 days. FOLLOWUP: He needs to follow up with Dr. Orosco in a week. At this time,, his wound will be re- evaluated. He was instructed to call to be seen sooner, or return to the emergency room for temperature greater than 101.5, and he will return with any foul smelling drainage, redness, swelling, or any questions or concerns that he may have. He is being discharged home in stable condition with family members. TIME SPENT: This is a greater than 30 minute discharge, from 4:30 to 5:05. Dictated by LAST Abraham for Panfilo Romano MD cc: LAST Abraham MD [facility]
--- NOTE | 2017-01-28 15:07 | OPERATIVE NOTE ---
PROCEDURE DATE : 12/28/2016 ADDENDUM REPORT Please add to principal procedure which reads incision and drainage with extensive debridement of skin, subcutaneous tissue, muscle and fascia of infected soft tissue medial right thigh measuring 29 x 60 cm (Maximino's gangrene). cc: Gabriela Orosco MD
== END 2017-01-08 17:35 | disposition home health service (06) ==
LOC: P.ED 13:54 → SUATTDRO 13:55 → P.MEDSURG 13:55
PROVIDERS: ATTEND Family Medicine

== ENCOUNTER 2017-04-24 14:13 | Inpatient (IN) ==
[2017-04-24] MEDS ORDERED: ROCEPHIN 1 GM in NS 50 ML IV ONE (15:46)
[2017-04-24 16:01] LABS: MANUAL DIFF NEEDED? NO
[2017-04-24 16:04] LABS: BASO% 0.1 % (0.0-0.8); EOS# 0.02 X1000 (0.0-0.7); EOS% 0.2 % (0.0-10.0); HEMOGLOBIN 14.4 g/dL (14.0-18.0); IMM GRAN# 0.03 X1000 (0.0-0.04); IMM GRAN% 0.3 % (0.0-0.5); LYMPH% 12.8 % (20.5-51.1); MCH 28.7 PG (27-31); MCHC 34.3 g/dL (33-37); MCV 83.8 FL (81-99); MONO# 0.58 X1000 (0.11-0.59); MONO% 5.7 % (1.7-9.3); MPV 9.2 FL (7.4-10.4); NEUT% 80.9 % (42.2-75.2); PLT 213 X1000 (130-400); RBC 5.01 XMIL (4.7-6.1)
[2017-04-24 16:34] LABS: AGAP 13; ALBUMIN 4.1 g/dL (3.5-5.0); ALKALINE PHOSPHATASE 58 U/L (32-122); BUN 25 mg/dL (8-22); CALCIUM 9.3 mg/dL (8.8-10.2); CHLORIDE 101 mmol/L (98-107); COSMO 284; GOT 14 U/L (10-34); GPT 16 U/L (10-44); POTASSIUM 4.9 mmol/L (3.5-5.1); SODIUM 139 mmol/L (136-145); TCO2 25 mmol/L (25-35); TOTAL BILIRUBIN 0.32 mg/dL (0.20-1.00); TOTAL PROTEIN 7.9 g/dL (6.3-8.3)
[2017-04-24] MEDS ORDERED: VANCOMYCIN IV PER PHARMACY MISC SCH (17:15)
[2017-04-24] MEDS: ZOSYN 3.375 GM in NS 50 ML IV SCH (17:30)
[2017-04-24] MEDS ORDERED: BENADRYL IV PRN (17:51)
[2017-04-24] MEDS ORDERED: CLINDAMYCIN 600 MG/NS 600 MG/50 ML IVPB IV SCH (18:00)
[2017-04-24] MEDS: CLINDAMYCIN 600 MG/NS 600 MG/50 ML IVPB IV SCH (18:15)
[2017-04-24] MEDS ORDERED: VANCOMYCIN 2 GM in NS 500 ML IV ONE (20:00)
[2017-04-24] MEDS ORDERED: NS 1,000 ML IV SCH (20:45)
[2017-04-24] MEDS ORDERED: TYLENOL PO PRN (20:45)
[2017-04-24] MEDS ORDERED: ZOFRAN IV PRN (20:45)
[2017-04-24] MEDS ORDERED: NORCO-7.5 PO PRN (20:45)
[2017-04-25] MEDS: ZOSYN 3.375 GM in NS 50 ML IV SCH ×3 (01:19→13:20)
[2017-04-25] MEDS: LANTUS SUBQ SCH ×3 (01:20→23:30)
[2017-04-25] MEDS: MEVACOR PO SCH ×2 (01:20→23:30)
[2017-04-25] MEDS: HUMULIN R SUBQ SCH ×5 (01:20→23:27)
[2017-04-25] MEDS: CLINDAMYCIN 600 MG/NS 600 MG/50 ML IVPB IV SCH ×2 (03:08→09:16)
[2017-04-25 05:28] LABS: URINE CULTURE NEEDED? NO; URINE MICRO REVIEW NEEDED? NO; URINE SOURCE CLEAN CATCH
[2017-04-25 05:29] LABS: BILIRUBIN URINE NEGATIVE (NEGATIVE); BLOOD URINE NEGATIVE (NEGATIVE); COLOR YELLOW; GLUCOSE URINE >1000 mg/dL (NEGATIVE); LEUKOCYTES URINE NEGATIVE (NEGATIVE); NITRITE URINE NEGATIVE (NEGATIVE); PROTEIN URINE TRACE mg/dL (NEGATIVE); SP GRAVITY URINE 1.027; TURBIDITY URINE CLEAR (CLEAR); UROBILINOGEN URINE NORMAL (NORMAL)
[2017-04-25 05:30] LABS: UR EPITHELIAL CELLS <10 /HPF (<10); URINE BACTERIA NEGATIVE /HPF; URINE RBC <10 /HPF (<10); URINE WBC <10 /HPF (<10)
[2017-04-25 06:36] LABS: MANUAL DIFF NEEDED? NO
[2017-04-25 06:45] LABS: BASO% 0.3 % (0.0-0.8); EOS# 0.08 X1000 (0.0-0.7); EOS% 1.3 % (0.0-10.0); HEMATOCRIT 39.7 % (42.0-52.0); HEMOGLOBIN 13.7 g/dL (14.0-18.0); LYMPH# 1.23 X1000 (1.2-3.4); LYMPH% 20.1 % (20.5-51.1); MCH 29.2 PG (27-31); MCHC 34.5 g/dL (33-37); MCV 84.6 FL (81-99); MONO# 0.56 X1000 (0.11-0.59); MONO% 9.2 % (1.7-9.3); MPV 9.4 FL (7.4-10.4); NEUT% 69.1 % (42.2-75.2); PLT 190 X1000 (130-400); RBC 4.69 XMIL (4.7-6.1)
[2017-04-25 06:48] LABS: INR 0.98; PROTIME 10.3 Seconds (9.2-11.7)
[2017-04-25] MEDS: INVOKANA PO SCH (06:59)
[2017-04-25 07:12] LABS: AGAP 14; ALBUMIN 3.5 g/dL (3.5-5.0); ALKALINE PHOSPHATASE 52 U/L (32-122); BUN 23 mg/dL (8-22); CALCIUM 8.9 mg/dL (8.8-10.2); CHLORIDE 103 mmol/L (98-107); COSMO 286; GOT 14 U/L (10-34); GPT 13 U/L (10-44); MAGNESIUM 2.1 mg/dL (1.5-2.7); POTASSIUM 4.1 mmol/L (3.5-5.1); SODIUM 141 mmol/L (136-145); TCO2 24 mmol/L (25-35); TOTAL BILIRUBIN 0.26 mg/dL (0.20-1.00); TOTAL PROTEIN 7.5 g/dL (6.3-8.3)
[2017-04-25 08:02] LABS: HEMOGLOBIN A1C 7.1 % (4.8-6.0)
[2017-04-25 08:15] LABS: FREE T4 1.13 ng/dL (0.93-1.70)
[2017-04-25] MEDS: PRINIVIL PO SCH (09:15)
[2017-04-25] MEDS: GLUCOPHAGE PO SCH ×2 (09:15→18:20)
[2017-04-25] MEDS: LOFIBRA PO SCH (09:15)
[2017-04-25] MEDS: LOVENOX SUBQ SCH (09:15)
[2017-04-25] MEDS: PRILOSEC PO SCH (09:15)
[2017-04-25] MEDS: ASPIRIN EC PO SCH (09:15)
[2017-04-25] MEDS: AMARYL PO SCH (09:15)
[2017-04-25] MEDS: KEFZOL IV SCH (18:20)
[2017-04-25] MEDS: NS IV SCH (18:20)
[2017-04-25] MEDS ORDERED: VANCOMYCIN 2,000 MG in NS 500 ML IV SCH (20:00)
[2017-04-25] MEDS ORDERED: INSULIN PEN NEEDLES ONE (23:25)
[2017-04-26] MEDS: KEFZOL IV SCH ×3 (01:17→17:57)
[2017-04-26] MEDS: NS IV SCH ×3 (01:17→17:57)
[2017-04-26] MEDS: HUMULIN R SUBQ SCH ×3 (06:12→17:56)
[2017-04-26] MEDS: INVOKANA PO SCH (06:13)
[2017-04-26 07:00] LABS: MANUAL DIFF NEEDED? NO
[2017-04-26 07:03] LABS: BASO% 0.3 % (0.0-0.8); EOS# 0.12 X1000 (0.0-0.7); EOS% 3.1 % (0.0-10.0); HEMATOCRIT 39.1 % (42.0-52.0); HEMOGLOBIN 13.5 g/dL (14.0-18.0); LYMPH# 1.45 X1000 (1.2-3.4); LYMPH% 37.9 % (20.5-51.1); MCH 29.1 PG (27-31); MCHC 34.5 g/dL (33-37); MCV 84.3 FL (81-99); MONO# 0.38 X1000 (0.11-0.59); MONO% 9.9 % (1.7-9.3); MPV 9.1 FL (7.4-10.4); NEUT% 48.8 % (42.2-75.2); PLT 200 X1000 (130-400); RBC 4.64 XMIL (4.7-6.1)
[2017-04-26 07:32] LABS: AGAP 10; BUN 20 mg/dL (8-22); CALCIUM 9.2 mg/dL (8.8-10.2); CHLORIDE 104 mmol/L (98-107); COSMO 285; POTASSIUM 4.6 mmol/L (3.5-5.1); SODIUM 141 mmol/L (136-145); TCO2 27 mmol/L (25-35)
[2017-04-26] MEDS: PRILOSEC PO SCH (11:22)
[2017-04-26] MEDS: PRINIVIL PO SCH (11:22)
[2017-04-26] MEDS: GLUCOPHAGE PO SCH ×2 (11:23→17:57)
[2017-04-26] MEDS: AMARYL PO SCH (11:23)
[2017-04-26] MEDS: LOFIBRA PO SCH (11:24)
[2017-04-26] MEDS: ASPIRIN EC PO SCH (11:24)
[2017-04-26] MEDS: LOVENOX SUBQ SCH (11:25)
[2017-04-26 15:48] VITALS: BP 133/78
== END 2017-04-26 18:30 | disposition home or self-care (01) ==
LOC: ED 14:13 → 3N 14:14
PROVIDERS: ATTEND Internal Medicine